=== PATIENT | female | born 1960 | race Caucasian/White ===

== ENCOUNTER 2023-02-11 12:35 | Emergency (ER) | payer BC, SELFPAY ==
[2023-02-11] VITALS (21 sets, daily range): BP systolic 130–143; BP diastolic 82–95; PULSE 65–91; RESP 18–20; TEMP 36.6; O2SAT 94–98; BMI 30.9
--- NOTE | 2023-02-11 13:00 | ED.GENADULT ---
HPI - General Adult General Chief complaint: Arrhythmia/Palpitations Stated complaint: heart palpitations, headache, dizziness Time Seen by Provider: 02/11/23 12:46 History of Present Illness HPI narrative: Has been feeling heart palpitations in her throat for the past few weeks. Over thr last few days it has been more frequent. Feels a heavy chest, some shortness of breath. No chest pain. Took 325mg of aspirin this morning. 62-year-old woman presenting to the emergency department on advice of clinic for cardiac evaluation. For the last 3 or 4 weeks has been feeling fluttering in her throat thought to be heart palpitations of some sort. Was feeling a little lightheaded today. The last few days was more frequent. She felt heaviness in her chest a little short of breath maybe. She is not having persistent chest pain. She was seen 7-10 days ago in primary care clinic where apparently a TSH was checked and reportedly normal in the setting of Graves disease, was also set up for cardiac monitoring. Sounds like this will be somewhere between 7-14 days. She has not picked this up yet. Does drink numerous cups of coffee a day; unchanged. Related Data Home Medications Medication Instructions Recorded Confirmed levothyroxine 112 mcg tablet 112 mcg PO DAILY 02/11/23 02/11/23 (Synthroid) Allergies Allergy/AdvReac Type Severity Reaction Status Date / Time No Known Drug Allergies Allergy Verified 02/11/23 12:50 Review of Systems Status of ROS: Reports: 6 or more systems reviewed and unremarkable except as noted in History and below PFSH PFS Social History Smoking Status: Never smoker Do you use any of these nicotine containing products: None Second hand tobacco smoke exposure: No How often do you have a drink containing alcohol: 2-3 times a week How many standard drinks containing alcohol do you have on a typical day: 1 or 2 How often do you have six or more drinks on one occasion: Never AUDIT-C Alcohol total score: 3 Non-prescribed substance use: denies use service: No Exam Narrative: Exam Narrative: Pleasant. Mildly anxious. Breathing easily. Cranial nerves 2-12 intact. Moving all extremities without difficulty. She is well-perfused peripherally without lower extremity edema. Neck is supple without appreciable thyromegaly. No lymphadenopathy. Lungs are clear. Heart with regular rate and ectopic beats. No murmur rub or gallop. No discomfort to palpation over the chest wall or abdomen. Skin was warm and dry without rash. During our conversation/interview and exam she is feeling this sensation in her throat. This seems to correspond consistent with PVCs on conveyor monitor. Const: Vital Signs, click to edit/add: Vital Signs - 24 hr 02/11/23 12:45 02/11/23 12:57 02/11/23 13:00 Temperature 98 F Pulse Rate 79 82 Pulse Rate [Right Pulse Oximeter] 91 Respiratory Rate 20 Blood Pressure Blood Pressure [Ri ght Upper Arm] 141/95 H Pulse Oximetry 96 98 97 Oxygen Delivery Me thod Room Air 02/11/23 13:02 02/11/23 13:03 02/11/23 13:15 Temperature Pulse Rate 82 82 85 Pulse Rate [Right Pulse Oximeter] Respiratory Rate Blood Pressure 143/82 H Blood Pressure [Ri ght Upper Arm] Pulse Oximetry 96 97 98 Oxygen Delivery Me thod 02/11/23 13:30 02/11/23 13:32 02/11/23 13:45 Temperature Pulse Rate 71 77 73 Pulse Rate [Right Pulse Oximeter] Respiratory Rate Blood Pressure 135/91 H Blood Pressure [Ri ght Upper Arm] Pulse Oximetry 97 97 96 Oxygen Delivery Me thod 02/11/23 14:00 02/11/23 14:09 02/11/23 14:15 Temperature Pulse Rate 73 65 73 Pulse Rate [Right Pulse Oximeter] Respiratory Rate Blood Pressure 140/83 H Blood Pressure [Ri ght Upper Arm] Pulse Oximetry 97 94 96 Oxygen Delivery Me thod 02/11/23 14:30 02/11/23 14:30 02/11/23 14:32 Temperature Pulse Rate 79 74 Pulse Rate [Right Pulse Oximeter] Respiratory Rate 18 Blood Pressure 135/84 Blood Pressure [Ri ght Upper Arm] Pulse Oximetry 96 94 Oxygen Delivery Me thod 02/11/23 14:32 02/11/23 14:33 02/11/23 14:45 Temperature Pulse Rate 74 70 71 Pulse Rate [Right Pulse Oximeter] Respiratory Rate Blood Pressure 135/84 Blood Pressure [Ri ght Upper Arm] Pulse Oximetry 94 97 96 Oxygen Delivery Me thod 02/11/23 15:00 02/11/23 15:02 02/11/23 15:15 Temperature Pulse Rate 75 69 70 Pulse Rate [Right Pulse Oximeter] Respiratory Rate Blood Pressure 130/82 Blood Pressure [Ri ght Upper Arm] Pulse Oximetry 95 95 98 Oxygen Delivery Me thod 02/11/23 15:30 02/11/23 15:32 Temperature Pulse Rate 66 Pulse Rate [Right Pulse Oximeter] Respiratory Rate Blood Pressure 133/84 Blood Pressure [Ri ght Upper Arm] Pulse Oximetry 96 Oxygen Delivery Me thod Documenting provider has reviewed patient's vital signs: yes Course Vital Signs Vital signs: Initial Vital Signs Temperature 98 F 02/11/23 12:45 Temperature Source Temporal Artery Scan 02/11/23 12:45 Pulse Rate 91 02/11/23 12:45 Pulse Rhythm Regular 02/11/23 12:45 Respiratory Rate 20 02/11/23 12:45 Blood Pressure 141/95 H 02/11/23 12:45 Blood Pressure Mean 110 H 02/11/23 12:45 Blood Pressure Position Semi-Fowlers 02/11/23 12:45 Pulse Oximetry 96 02/11/23 12:45 Oxygen Delivery Method Room Air 02/11/23 12:45 Vital Signs Temperature 98 F 02/11/23 12:45 Pulse Rate 91 02/11/23 12:45 Respiratory Rate 20 02/11/23 12:45 Blood Pressure 141/95 H 02/11/23 12:45 Pulse Oximetry 96 02/11/23 12:45 Oxygen Delivery Method Room Air 02/11/23 12:45 Temperature 98 F 02/11/23 12:45 Pulse Rate 66 02/11/23 15:30 Respiratory Rate 18 02/11/23 14:30 Blood Pressure 133/84 02/11/23 15:32 Pulse Oximetry 96 02/11/23 15:30 Oxygen Delivery Method Room Air 02/11/23 12:45 Medical Decision Making MDM Narrative Medical decision making narrative: Symptomatic PVCs would appear to be consistent with her complaints and evidenced here on monitor. It sounds as though does need some other lab screening and can recheck TSH. Did offer IV hydration but she feels she can drink. Monitored with continued PVCs. She is not reporting lightheadedness. They are unifocal. Overall a little improved in symptoms. Labs are reassuring. See patient discharge plan Lab Data Lab results reviewed: Yes I reviewed the patient's lab results Labs: Lab Results 10/31/23 Range/Units 13:45 WBC 4.91 (4.50-11.00) K/uL RBC 4.47 (4.00-5.20) m/uL Hgb 12.9 (12.0-16.0) gm/dL Hct 39.0 (33.0-51.0) % MCV 87 (80-100) fL MCH 29 (26-34) pg MCHC 33 (32-36) gm/dL RDW Coeff of Tanner 13.1 (11.5-15.5) % Plt Count 237 (140-440) K/uL Neut % (Auto) 59.1 (42.0-72.0) % Lymph % (Auto) 31.2 (20-44) % [place] % (Auto) 7.3 (0.0-11.0) % Eos % (Auto) 2.0 (0.0-7.0) % Baso % (Auto) 0.4 (0.0-3.0) % Neut # (Auto) 2.90 (1.7-7.0) K/uL Lymph # (Auto) 1.53 (0.90-2.90) K/uL [place] # (Auto) 0.40 (0.00-0.90) K/UL Eos # (Auto) 0.10 (0.00-0.50) K/uL Baso # (Auto) 0.02 (0.00-0.30) K/uL Abs Immat Gran (auto) 0.00 (0.00-0.30) K/uL Imm/Tot Granulo (auto) 0.0 % Sodium 140 (135-149) mmol/L Potassium 3.8 (3.6-5.1) mmol/L Chloride 100 (96-114) mmol/L Carbon Dioxide 26 (20-32) mmol/L Anion Gap 14 (7-15) mEq/L BUN 17 (7-30) mg/dL Creatinine 1.0 (0.5-1.5) mg/dL Estimated Creat Clear 49.72 Estimated GFR 63 ml/min Glucose 102 (60-115) mg/dL Calcium 9.1 (8.4-10.6) mg/dL NT-Pro-B Natriuret Pep 36 pg/mL TSH 1.630 (0.270-4.20) uIU/mL ECG Data Attestation: I personally reviewed and interpreted this ECG as follows: (Normal sinus rhythm rate of 92. No ischemic changes. Baseline irritability) Discharge Plan Discharge Clinical Impression: Symptomatic PVCs Patient Disposition: Home w/ Parent or Adult Condition: Stable Additional Instructions: Do stay well-hydrated. Consider limiting some your caffeine intake. Don't be afraid to exercise. A little heart pumping exercise daily does everybody good. Return for more persistent, severe chest discomfort or lightheadedness or certainly any related syncope. Follow-up with your primary care provider as discussed probably about a week after turning in that heart monitor, which I suspect is a ZIO patch. Prescriptions: No Action levothyroxine [Synthroid] 112 mcg tablet 112 mcg PO DAILY Follow Up/Referrals: Manuela Topete PA-C [Primary Care Provider] - Stand Alone Forms: [facility] Info Instructions
[2023-02-11 14:07] LABS: Basophils Absolute Auto 0.02 K/uL (0.00-0.30); Basophils Percent Auto 0.4 % (0.0-3.0); Hemoglobin* 12.9 gm/dL (12.0-16.0); Lymphocytes Absolute Auto 1.53 K/uL (0.90-2.90); Lymphocytes Percent Auto 31.2 % (20-44); Mean Corpuscular HGB Conc 33 gm/dL (32-36); Mean Corpuscular Hemoglobin 29 pg (26-34); Mean Corpuscular Volume 87 fL (80-100); Monocytes Percent Auto 7.3 % (0.0-11.0); Neutrophils Percent Auto 59.1 % (42.0-72.0); Platelet Count* 237 K/uL (140-440); RDW Coefficient of Variation % 13.1 % (11.5-15.5); Red Blood Count 4.47 m/uL (4.00-5.20); White Blood Count* 4.91 K/uL (4.50-11.00)
[2023-02-11 14:21] LABS: Slide Review Reflex No
[2023-02-11 14:32] LABS: Chloride* 100 mmol/L (96-114); Sodium* 140 mmol/L (135-149)
[2023-02-11 14:33] LABS: Potassium* 3.8 mmol/L (3.6-5.1)
[2023-02-11 14:35] LABS: Est. Creatinine Clearance* 49.72; Estimated Glomerular Filt Rate 63 ml/min
[2023-02-11 14:36] LABS: Anion Gap 14 mEq/L (7-15); Blood Urea Nitrogen* 17 mg/dL (7-30); Calcium* 9.1 mg/dL (8.4-10.6); Carbon Dioxide* 26 mmol/L (20-32); Glucose* 102 mg/dL (60-115)
[2023-02-11 14:47] LABS: NT Pro B Type NatriureticPept* 36 pg/mL
== END 2023-02-11 15:36 | disposition home or self-care (01) ==
PROVIDERS: Emergency Provider Family Medicine; PCP Physician Assistant Medical
DX: I49.3 Ventricular premature depolarization (principal)
CPT/HCPCS: 36415; 80048; 83880; 84443; 85025; 93005; 99284

== ENCOUNTER 2023-05-05 16:45 | Outpatient (RCR) | payer BC, SELFPAY | END 2023-07-09 11:28 | disposition home or self-care (01) | PROVIDERS: PCP Physician Assistant Medical; Visit Provider Physician Assistant Medical | DX: M25.511 Pain in right shoulder (principal); G89.29 Other chronic pain; Z51.89 Encounter for other specified aftercare | CPT/HCPCS: 97110; 97140; 97161 ==